=== PATIENT | male | born 1940 | race Caucasian/White ===

== ENCOUNTER 2018-05-26 11:13 | Emergency (ER) | payer MEDICARE ==
--- NOTE | 2018-05-26 11:21 | UC ---
General HPI - HPI Summary HPI Summary: Patient presents to urgent care with his . Patient 78-year-old gentleman with a history of hypertension, diabetes who states yesterday he noticed he was more short of breath with activity. Patient states today he went to his chiropractor his blood pressure was high so he was advised to get checked. Patient denies chest pain, nausea, vomiting, headache, vision changes, lightheadedness. Patient takes 81 mg aspirin daily and took today. Patient states he's never had a heart attack and has no stents. Patient this primary in [place] but spends the summer here. Pt does not have a PCP here. Pt's complete medical list not available for review - History of Current Complaint Stated Complaint: SOB,HIGH BLOOD PRESSURE Hx Obtained From: Patient, Family/Ct Tech Onset/Duration: Gradual Onset - Allergy/Home Medications Allergies/Adverse Reactions: Allergies Allergy/AdvReac Type Severity Reaction Status Date / Time esomeprazole [From Nexium] Allergy Diarrhea Verified 05/26/18 11:22 Home Medications: Home Medications Multivitamin [Multiple Vitamins] 1 each PO DAILY 05/26/18 [History Confirmed 06/05] Omeprazole CAP* [Prilosec CAP* 20 MG] 20 mg PO DAILY 05/26/18 [History Confirmed 05/26/18] Tamsulosin CAP* [Flomax CAP*] 0.4 mg PO DAILY 05/26/18 [History Confirmed ] PMH/Surg Hx/FS Hx/Imm Hx Previously Healthy: Yes Endocrine History: Diabetes Cardiovascular History: Hypertension - Surgical History Surgical History: Yes - prostate - Family History Known Family History: Positive: Hypertension - Social History Occupation: Retired Lives: With Family - 54 years Review of Systems Constitutional: Negative Respiratory: Shortness Of Breath All Other Systems Reviewed And Are Negative: Yes Physical Exam - Summary Physical Exam Summary: Vital Signs Reviewed: Yes A+Ox3, no distress Eyes: Conjunctiva Clear, SOREN. EOM intact and full ENT: Hearing grossly normal, mm oist Neck: Positive: Supple Respiratory: Positive: No respiratory distress, No accessory muscle use + CTA throughout no w/r Cardiovascular: bradycardic, reguar no m/r trace pedal edema CBT < 2 sec abd soft + BS nt/nd no guarding, no distension Musculoskeletal Exam: RAMOS x 4 without difficulty Strength Intact, ROM Intact Neurological: Positive: Alert, + sensation throughout Psychological: Positive: Normal Response To Family Skin: Positive: no rash, no ecchymosis Triage Information Reviewed: Yes Diagnostics - EKG Cardiac Rate: Bradycardia Cardiac Rhythm: Sinus: Normal - 11:19am HR 37 sinus with ?PVC couplet Ectopy: PVCs EKG Comparison: Other - none available Course/Dx - Course Course Of Treatment: Patient presents to urgent care with 24 hours of progressive shortness of breath with activity. Patient without any other complaints. Patient was noted to have an elevated blood pressure today is compactor so came here for evaluation. Patient does have a history of hypertension and diabetes. On initial review vital signs patient is be bradycardic with a heart rate of 37. Patient's other vital signs reviewed and stable. Review of EKG shows sinus bradycardia a with a unclear couplet. Unclear whether it's retrograde conduction vs vetricular bigeminy. FSBG 108. spoke with pt and together - recommended pt got by EMS to hospital. After discussion, pt requesting [place]. IV/NS ordered. Pt on O2. spoke with Dr. Morales - ED attending at [facility] - accepting pt. Paperwork complete. EKG faxed. rode with EMS. BP elevated - previous dx - Differential Dx - Multi-Symptom Provider Diagnoses: SOB, bradycardia Discharge - Sign-Out/Discharge Documenting (check all that apply): Patient Departure - Discharge Plan Condition: Good Disposition: TRANS HIGHER LVL OF CARE FAC Patient Education Materials: Shortness of Breath (ED) Referrals: No Primary Care Phys,NOPCP [Primary Care Provider] - - Billing Disposition and Condition Condition: GOOD Disposition: Trans Higher Lvl of Care Fac
[2018-05-26] MEDS ORDERED: NS 0.9% 1000 ML* 1,000 ML IV SCH (12:00)
[2018-05-26 12:04] VITALS: BP 130/58
== END 2018-05-26 11:57 | disposition short-term general hospital (02) ==
LOC: UCCORT 11:13
DX: R00.1 Bradycardia, unspecified (principal); R06.02 Shortness of breath; I10 Essential (primary) hypertension; E11.9 Type 2 diabetes mellitus without complications; Z88.8 Allergy status to other drugs, medicaments and biological substances
CPT/HCPCS: 93005; 99204; G0463